=== PATIENT | male | born 1935 | race Caucasian/White ===

== ENCOUNTER 2018-02-28 08:52 | Observation (INO) | payer MEDICARE ==
--- NOTE | 2018-02-28 09:07 | ED ---
General Adult HPI - General Stated complaint: Altered mental status Time Seen by Provider: 02/28/18 08:58 Source: patient, EMS, RN notes reviewed, old records reviewed - History of Present Illness Initial comments: 83-year-old male presents by EMS after [facility]. Patient was found by staff covered in feces, unknown how long the patient had been in the bathroom. He was able to ambulate with assistance. EMS denies any blood or external signs of trauma. Patient is a poor historian. Uncertain of his baseline mental status at the time of initial evaluation. Patient complains of some mild right-sided neck pain. No chest pain or abdominal pain. No history of vomiting or diarrhea. No history of fever. - Related Data Home Medications Medication Instructions Recorded Confirmed Aspirin [Adult Low Dose Aspirin EC] 81 mg PO DAILY 02/28/18 02/28/18 Dicyclomine HCl 20 mg PO QID 02/28/18 02/28/18 fentaNYL 25MCG/HR PATCH [Duragesic 1 patch TRANSDERM Q72H 02/28/18 02/28/18 25MCG/HR] glipiZIDE XL [Glucotrol Xl] 2.5 mg PO DAILY 02/28/18 02/28/18 Allergies Allergy/AdvReac Type Severity Reaction Status Date / Time Penicillins Allergy Swelling Verified 02/28/18 12:39 Review of Systems ROS Statement: Those systems with pertinent positive or pertinent negative responses have been documented in the HPI. ROS Other: All systems not noted in ROS Statement are negative. General Exam General appearance: alert, in no apparent distress Head exam: Present: atraumatic, normocephalic Eye exam: Present: normal appearance, PERRL, EOMI ENT exam: Present: mucous membranes dry Neck exam: Present: normal inspection, tenderness (No midline tenderness, some mild right cervical paraspinal tenderness) Respiratory exam: Present: normal lung sounds bilaterally. Absent: respiratory distress, wheezes, rales Cardiovascular Exam: Present: regular rate, normal rhythm GI/Abdominal exam: Present: soft. Absent: distended, tenderness Extremities exam: Present: normal inspection, normal capillary refill. Absent: pedal edema, calf tenderness Back exam: Present: normal inspection. Absent: tenderness, paraspinal tenderness, vertebral tenderness Neurological exam: Present: alert, CN II-XII intact. Absent: oriented X3 (2), motor sensory deficit Psychiatric exam: Present: normal affect, normal mood Skin exam: Present: warm, dry, intact. Absent: cyanosis, diaphoretic Course Vital Signs 02/28/18 02/28/18 02/28/18 08:59 11:13 13:15 Pulse Rate 78 76 75 Respiratory 18 18 18 Rate Blood Pressure 184/85 168/89 150/80 O2 Sat by Pulse 96 98 98 Oximetry EKG Findings - EKG Comments: EKG Findings:: EKG, normal sinus rhythm, ventricular rate of 77, MA interval 176 , QRS duration 106, QTC 411, no ST segment elevation Medical Decision Making - Medical Decision Making 83-year-old male presenting status post fall with unknown downtime. Patient is a poor historian. CT is obtained, negative for intracranial hemorrhage, negative C-spine no fracture or subluxation. Pelvis x-ray shows a partially healed right hip fracture. Patient states this was several months ago but is not clear and no records are available for review. Chest x-ray shows clear lungs no pneumonia. White blood cell count shows mild leukocytosis of 14.1, hemoglobin 16.9, mild hyperkalemia 5.2. There is some transaminitis with elevated bili, ultrasound is obtained, this is negative for infection, gallbladder surgically removed. Case discussed with the patient's primary care physician Dr. Rae, he will be placed in observation, physical therapy and orthopedic surgery to evaluate. - Lab Data Result diagrams: 02/28/18 09:04 02/28/18 09:04 Lab Results 02/28/18 02/28/18 02/28/18 Range/Units 09:04 09:04 09:04 WBC 14.1 H (3.8-10.6) k/uL RBC 5.42 (4.30-5.90) m/uL Hgb 16.9 (13.0-17.5) gm/dL Hct 50.1 (39.0-53.0) % MCV 92.4 (80.0-100.0) fL MCH 31.2 (25.0-35.0) pg MCHC 33.8 (31.0-37.0) g/dL RDW 12.9 (11.5-15.5) % Plt Count 147 L (150-450) k/uL Neutrophils % 78 % Lymphocytes % 12 % Monocytes % 8 % Eosinophils % 1 % Basophils % 0 % Neutrophils # 11.0 H (1.3-7.7) k/uL Lymphocytes # 1.7 (1.0-4.8) k/uL Monocytes # 1.1 H (0-1.0) k/uL Eosinophils # 0.1 (0-0.7) k/uL Basophils # 0.0 (0-0.2) k/uL PT (9.0-12.0) sec INR (<1.2) APTT (22.0-30.0) sec Sodium 144 (137-145) mmol/L Potassium 5.4 H (3.5-5.1) mmol/L Chloride 107 (98-107) mmol/L Carbon Dioxide 22 (22-30) mmol/L Anion Gap 15 mmol/L BUN 21 H (9-20) mg/dL Creatinine 1.11 (0.66-1.25) mg/dL Est GFR (CKD-EPI)AfAm 71 (>60 ml/min/1.73 sqM) Est GFR (CKD-EPI)NonAf 62 (>60 ml/min/1.73 sqM) Glucose 209 H (74-99) mg/dL Calcium 10.6 H (8.4-10.2) mg/dL Total Bilirubin 2.1 H (0.2-1.3) mg/dL AST 68 H (17-59) U/L ALT 104 H (21-72) U/L Alkaline Phosphatase 98 (38-126) U/L Total Creatine Kinase 179 H (55-170) U/L CK-MB (CK-2) 1.4 (0.0-2.4) ng/mL CK-MB (CK-2) Rel Index 0.8 Troponin I 0.016 (0.000-0.034) ng/mL Total Protein 7.9 (6.3-8.2) g/dL Albumin 4.3 (3.5-5.0) g/dL Urine Color Urine Appearance (Clear) Urine pH (5.0-8.0) Ur Specific [place] (1.001-1.035) Urine Protein (Negative) Urine Glucose (UA) (Negative) Urine Ketones (Negative) Urine Blood (Negative) Urine Nitrite (Negative) Urine Bilirubin (Negative) Urine Urobilinogen (<2.0) mg/dL Ur Leukocyte Esterase (Negative) Urine RBC (0-5) /hpf Urine WBC (0-5) /hpf Ur Squamous Epith Cells (0-4) /hpf Urine Mucus (None) /hpf 02/28/18 02/28/18 Range/Units 09:11 11:05 WBC (3.8-10.6) k/uL RBC (4.30-5.90) m/uL Hgb (13.0-17.5) gm/dL Hct (39.0-53.0) % MCV (80.0-100.0) fL MCH (25.0-35.0) pg MCHC (31.0-37.0) g/dL RDW (11.5-15.5) % Plt Count (150-450) k/uL Neutrophils % % Lymphocytes % % Monocytes % % Eosinophils % % Basophils % % Neutrophils # (1.3-7.7) k/uL Lymphocytes # (1.0-4.8) k/uL Monocytes # (0-1.0) k/uL Eosinophils # (0-0.7) k/uL Basophils # (0-0.2) k/uL PT 11.6 (9.0-12.0) sec INR 1.2 H (<1.2) APTT 23.1 (22.0-30.0) sec Sodium (137-145) mmol/L Potassium (3.5-5.1) mmol/L Chloride (98-107) mmol/L Carbon Dioxide (22-30) mmol/L Anion Gap mmol/L BUN (9-20) mg/dL Creatinine (0.66-1.25) mg/dL Est GFR (CKD-EPI)AfAm (>60 ml/min/1.73 sqM) Est GFR (CKD-EPI)NonAf (>60 ml/min/1.73 sqM) Glucose (74-99) mg/dL Calcium (8.4-10.2) mg/dL Total Bilirubin (0.2-1.3) mg/dL AST (17-59) U/L ALT (21-72) U/L Alkaline Phosphatase (38-126) U/L Total Creatine Kinase (55-170) U/L CK-MB (CK-2) (0.0-2.4) ng/mL CK-MB (CK-2) Rel Index Troponin I (0.000-0.034) ng/mL Total Protein (6.3-8.2) g/dL Albumin (3.5-5.0) g/dL Urine Color Yellow Urine Appearance Clear (Clear) Urine pH 5.5 (5.0-8.0) Ur Specific [place] 1.019 (1.001-1.035) Urine Protein 1+ H (Negative) Urine Glucose (UA) 2+ H (Negative) Urine Ketones Trace H (Negative) Urine Blood Negative (Negative) Urine Nitrite Negative (Negative) Urine Bilirubin Negative (Negative) Urine Urobilinogen <2.0 (<2.0) mg/dL Ur Leukocyte Esterase Negative (Negative) Urine RBC 1 (0-5) /hpf Urine WBC 1 (0-5) /hpf Ur Squamous Epith Cells <1 (0-4) /hpf Urine Mucus Rare H (None) /hpf Disposition Clinical Impression: Fall, Hip fracture, right Disposition: ADMITTED IP TO THIS [facility] Condition: Stable Referrals: Wellington Rae MD [Primary Care Provider] - 1-2 days Decision to Admit Reason: Admit from EC Decision Date: 02/28/18 Decision Time: 13:39
[2018-02-28 09:28] LABS: Basophils % (A) 0 %; Eosinophils # (A) 0.1 k/uL (0-0.7); Eosinophils % (A) 1 %; HCT 50.1 % (39.0-53.0); HGB 16.9 gm/dL (13.0-17.5); Lymphocytes # (A) 1.7 k/uL (1.0-4.8); Lymphocytes % (A) 12 %; MCH 31.2 pg (25.0-35.0); MCHC 33.8 g/dL (31.0-37.0); MCV 92.4 fL (80.0-100.0); Monocytes # (A) 1.1 k/uL (0-1.0); Monocytes % (A) 8 %; Neutrophils % (A) 78 %; Platelet Count 147 k/uL (150-450); RBC 5.42 m/uL (4.30-5.90); RDW 12.9 % (11.5-15.5); WBC 14.1 k/uL (3.8-10.6)
[2018-02-28 09:36] LABS: Albumin 4.3 g/dL (3.5-5.0); Calcium 10.6 mg/dL (8.4-10.2); Potassium 5.4 mmol/L (3.5-5.1); Total Bilirubin 2.1 mg/dL (0.2-1.3); Total Protein 7.9 g/dL (6.3-8.2)
[2018-02-28 09:38] LABS: INR 1.2 (<1.2); Partial Thromboplastin Time 23.1 sec (22.0-30.0); Prothrombin Time 11.6 sec (9.0-12.0)
--- NOTE | 2018-02-28 09:51 | CT ---
EXAMINATION TYPE: CT brain deepthi watters DATE OF EXAM: 02/28/2018 COMPARISON: NONE HISTORY: Altered mental status CT DLP: 1644.20 mGycm Automated exposure control for dose reduction was used. TECHNIQUE: CT scan of the head and cervical spine are performed without contrast. FINDINGS: BRAIN: There are generalized changes of sulcal prominence and ventriculomegaly, compatible with atrop hic change. There is diffuse periventricular white matter lucency, compatible with chronic white jono er ischemic change. There is no acute focal lesion, mass effect or midline shift identified. I do not see evidence of intracranial blood. Visualized portions of the paranasal sinuses and mastoids are clear. The bony calvarium is intact. IMPRESSION: 1. NO ACUTE INTRACRANIAL ABNORMALITY. 2. ATROPHIC CHANGE. 3. CHRONIC WHITE MATTER ISCHEMIC CHANGE. CERVICAL SPINE: The visualized portions of the lungs are clear. Prevertebral soft tissues are normal. Vertebral body height and alignment are maintained. Atlantoaxial relationships are normal. There is disc space loss and hypertrophic spondylosis at C3-4. There is a mild retrograde listhesis o f C3 on C4 and an antegrade listhesis of C4 on C5. There is disc space loss at C5-6. There is facet a rthropathy on the right at C3-4 there is uncovertebral joint disease present at C2-3 and C3-4. There is no evidence of protrusion. No fracture is identified. IMPRESSION: 1. NO ACUTE OSSEOUS LESION. 2. DEGENERATIVE CHANGE.
--- NOTE | 2018-02-28 09:53 | XR ---
EXAMINATION TYPE: XR pelvis AP view , ONE VIEW DATE OF EXAM ORDERED: 02/28/2018 HISTORY: Trauma. COMPARISON: None. FINDINGS: There has been a dynamic hip pinning on the right. There are degenerative changes in both hips. Osseous structures about the pelvis appear normal. Previous fracture of the right hip is not co mpletely healed. There are vascular calcifications. IMPRESSION: 1. PARTIALLY HEALED FRACTURE OF THE RIGHT HIP. 2. NO ACUTE OSSEOUS LESION
--- NOTE | 2018-02-28 09:54 | XR ---
EXAMINATION TYPE: XR chest 1V portable DATE OF EXAM: 02/28/2018 HISTORY: trauma. REFERENCE: NONE. FINDINGS: There has been a midline sternotomy. The lungs are clear. Heart size is within normal limits. There is some blunting of the left CP angle which may represent a small amount of pleural fluid or pleural thickening. IMPRESSION: MILD LEFT-SIDED PLEURAL REACTION.
[2018-02-28 10:06] LABS: Creatine Kinase MB 1.4 ng/mL (0.0-2.4); Troponin I 0.016 ng/mL (0.000-0.034)
[2018-02-28 11:20] LABS: Appearance,Urine Clear (Clear); Bilirubin,Urine Negative (Negative); Blood,Urine Negative (Negative); Color,Urine Yellow; Glucose,Urine (UA) 2+ (Negative); Ketones,Urine Trace (Negative); Leukocyte Esterase,Urine Negative (Negative); Mucus,Urine Rare /hpf; Nitrite,Urine Negative (Negative); PH, Urine 5.5 (5.0-8.0); Protein,Urine 1+ (Negative); RBC,Urine 1 /hpf (0-5); Specific Gravity,Urine 1.019 (1.001-1.035); Squamous Epithelial Cell,Urine <1 /hpf (0-4); Urobilinogen,Urine <2.0 mg/dL (<2.0); WBC,Urine 1 /hpf (0-5)
--- NOTE | 2018-02-28 13:15 | US ---
EXAMINATION TYPE: US gallbladder DATE OF EXAM: 02/28/2018 COMPARISON: NONE CLINICAL HISTORY: Pain. Abdominal pain, cholecystectomy EXAM MEASUREMENTS: Liver Length: 14.4 cm Gallbladder Wall: Surgically absent CBD: 0.4 cm Right Kidney: 14.8 x 5.0 x 4.3 cm Technical limitations due to patient's body habitus and overlying bowel content Pancreas: Obscured by bowel gas Liver: heterogeneous Gallbladder: Surgically absent Evidence for sonographic Ackerman's sign: no CBD: limited evaluation Right Kidney: complex cystic area upper pole = 9.1 x 7.1 x 9.0cm Gallbladder is obscured. The liver is normal in size but is somewhat heterogenous. There is no biliary dilatation. The gallbladder is been removed. The distal common hepatic duct measures 4 mm. There is a complex upper pole cyst in the right kidney measuring 9.1 x 7.1 x 9 cm. Intrahepatic IVC is unremarkable. IMPRESSION: 1. HETEROGENOUS ECHOTEXTURE OF THE LIVER MAY REFLECT CHRONIC MEDICAL DISEASE. 2. LARGE, COMPLEX RIGHT UPPER POLE RENAL CYST.
[2018-02-28] MEDS ORDERED: NALOXONE 0.4 MG/ML 1 ML VIAL IV PRN (13:35)
[2018-02-28 15:58] VITALS: BMI 29.5
[2018-02-28] MEDS: SODIUM CHLORIDE 0.9% 1,000 ML IV SCH (16:03)
[2018-02-28 17:18] LABS: Glucose,Whole Blood 199 mg/dL (75-99)
[2018-02-28] MEDS: INSULIN ASPART 100 UNIT/ML 1 ML 10 ML VIAL SQ SCH ×2 (18:03→21:31)
[2018-02-28 21:09] LABS: Glucose,Whole Blood 211 mg/dL (75-99)
[2018-02-28] MEDS: DICYCLOMINE 20 MG TAB PO SCH ×3 (21:31→21:32)
[2018-03-01 07:23] LABS: Glucose,Whole Blood 123 mg/dL (75-99)
[2018-03-01 07:57] LABS: Basophils % (A) 0 %; Eosinophils # (A) 0.3 k/uL (0-0.7); Eosinophils % (A) 4 %; HGB 15.9 gm/dL (13.0-17.5); Lymphocytes # (A) 3.1 k/uL (1.0-4.8); Lymphocytes % (A) 31 %; MCH 30.6 pg (25.0-35.0); MCHC 32.4 g/dL (31.0-37.0); MCV 94.4 fL (80.0-100.0); Monocytes # (A) 0.9 k/uL (0-1.0); Monocytes % (A) 9 %; Neutrophils # (A) 5.4 k/uL (1.3-7.7); Neutrophils % (A) 55 %; Platelet Count 121 k/uL (150-450); RBC 5.19 m/uL (4.30-5.90); RDW 12.9 % (11.5-15.5); WBC 9.9 k/uL (3.8-10.6)
[2018-03-01 08:11] LABS: Calcium 9.9 mg/dL (8.4-10.2); Potassium 4.2 mmol/L (3.5-5.1)
[2018-03-01] MEDS: INSULIN ASPART 100 UNIT/ML 1 ML 10 ML VIAL SQ SCH ×4 (08:20→21:36)
[2018-03-01] MEDS: DICYCLOMINE 20 MG TAB PO SCH ×4 (08:22→21:36)
[2018-03-01] MEDS: ASPIRIN 81 MG PO SCH (08:22)
--- NOTE | 2018-03-01 10:46 | P.CNOR ---
History of Present Illness - HPI Consult date: 03/01/18 Consult reason: other (Remote right hip fracture status post surgical fixation at outside institution. Patient found on the floor) History of present illness: Patient is seen and examined today at bedside. He is a 83-year-old gentleman who was found on the floor of his residence at [facility] unable to get up. He is somewhat poor historian but is able answer some questions. He is able to follow some commands. He says that he had sustained an injury 2 or 3 months ago and underwent surgical intervention for his right hip at [facility] 2-3 months ago. He says he had gone to rehab and is now residing at [facility] and has been doing some therapy. He says he is able to weight on his right leg but he feels as though his knee gives out from time to time. He is not complaining of any new pain in his hip. He is not complaining of any new pains at his neck back or other extremities since his new fall. He denies any chest pain shortness breath. Review of Systems As per HPI. Apparently underwent right intertrochanteric femur fracture with operative fixation approximately 2-3 months ago at [facility]. He denies any new injuries or trauma. He denies any new weakness. Denies any fevers chills. Denies any neck pain or back pain. Past Medical History Past Medical History: Diabetes Mellitus, Musculoskeletal Disorder (Right hip intertrochanteric femur fracture with surgical fixation done at [place], approximately 2-3 months ago) History of Any Multi-Drug Resistant Organisms: None Reported Past Surgical History: Cholecystectomy, Coronary Bypass/CABG Past Anesthesia/Blood Transfusion Reactions: No Reported Reaction Past Psychological History: No Psychological Hx Reported Smoking Status: Former smoker Past Alcohol Use History: None Reported Past Drug Use History: None Reported - Past Family History Brother(s) Family Medical History: COPD Medications and Allergies Home Medications Medication Instructions Recorded Confirmed Type Aspirin [Adult Low Dose Aspirin EC] 81 mg PO DAILY 02/28/18 02/28/18 History Dicyclomine HCl 20 mg PO QID 02/28/18 02/28/18 History fentaNYL 25MCG/HR PATCH [Duragesic 1 patch TRANSDERM Q72H 02/28/18 02/28/18 History 25MCG/HR] glipiZIDE XL [Glucotrol Xl] 2.5 mg PO DAILY 02/28/18 02/28/18 History Allergies Allergy/AdvReac Type Severity Reaction Status Date / Time Penicillins Allergy Swelling Verified 02/28/18 12:39 Physical Examination Osteopathic Statement: *. No significant issues noted on an osteopathic structural exam other than those noted in the History and Physical/Consult. - Hip right Gait: other (At his right hip there are well-healed incisions. There is no evidence of any erythema or infection. He is nontender to palpation over the area. He is able to lift his leg up off the bed well. He has no pain with internal and external rotation is hips. He has good active range of motion of his bilateral hips. He has sustained dorsal flexion plantarflexion and extensor hallucis longus his bilateral ankles. His strength intact in his bilateral knees. There is no tenderness to palpation over his knees. There is no crepitus.) Results - Labs Labs: Abnormal Lab Results - Last 24 Hours (Table) 02/28/18 02/28/18 02/28/18 Range/Units 11:05 17:05 21:02 Plt Count (150-450) k/uL Chloride (98-107) mmol/L Glucose (74-99) mg/dL POC Glucose (mg/dL) 199 H 211 H (75-99) mg/dL Urine Protein 1+ H (Negative) Urine Glucose (UA) 2+ H (Negative) Urine Ketones Trace H (Negative) Urine Mucus Rare H (None) /hpf 03/01/18 03/01/18 03/01/18 Range/Units 06:56 07:40 07:40 Plt Count 121 L (150-450) k/uL Chloride 108 H (98-107) mmol/L Glucose 137 H (74-99) mg/dL POC Glucose (mg/dL) 123 H (75-99) mg/dL Urine Protein (Negative) Urine Glucose (UA) (Negative) Urine Ketones (Negative) Urine Mucus (None) /hpf H & H 02/28/18 03/01/18 Range/Units 09:04 07:40 Hgb 16.9 15.9 (13.0-17.5) gm/dL Hct 50.1 49.0 (39.0-53.0) % Coagulation 02/28/18 Range/Units 09:11 INR 1.2 H (<1.2) Result Diagrams: 03/01/18 07:40 03/01/18 07:40 - Diagnostic results Wrist/Hand CT: report reviewed Hip x-ray: report reviewed, image reviewed (Pelvic x-ray shows a right intertrochanteric intramedullary hip screw in place. Appears to be inadequately healed intertrochanteric hip fracture which appears stable. There is no new fracture.) Assessment and Plan Assessment: Remote right hip intertrochanteric femur fracture status post open reduction internal fixation with intramedullary hip screw done at [facility] approximately to 3 months ago Status post fall at home without evidence of new fracture Stable fixation at the right hip Plan: -Remote right hip intertrochanteric femur fracture status post open reduction internal fixation with intramedullary hip screw done at [facility] approximately to 3 months ago -Status post fall at home without evidence of new fracture -Stable fixation at the right hip The patient sustained a fall while at his residence and was unable to get up. He does not appear to have any new injury or instability at this extremities. He has a subacute surgical status with an intramedullary hip screw at his right hip for an intertrochanteric hip fracture. This was done 2-3 months ago at [facility] of the patient is unsure of the specific date it appears to be adequately healed and his motion is improved significantly. He is not having pain in her hip at this point and I think it is okay for him to start to mobilize and weight-bear as tolerated with physical therapy. He does not appear to have any new fracture and it is okay from an orthopedic surgery standpoint to be discharged and to follow up with his own orthopedic surgery physician as scheduled. We do not have any further plan for orthopedic surgical intervention at this point. We will go ahead and order physical therapy for mobilization and ambulation weightbearing as tolerated.
[2018-03-01 11:51] LABS: Glucose,Whole Blood 181 mg/dL (75-99)
--- NOTE | 2018-03-01 13:28 | HP ---
HISTORY AND PHYSICAL DATE OF SERVICE: 02/28/2018. CHIEF COMPLAINT: 83-year-old white male with a fall at home. HISTORY OF PRESENT ILLNESS: 83-year-old white male came to the emergency room after being found covered feces in the bathroom. He usually does not ambulate. He usually just likes to lay in bed. He is a poor historian. He is complaining of some right-sided hip pain at this time. No vomiting, diarrhea. No fevers. HOME MEDICINES: 20 mg q.i.d., low-dose aspirin 81 daily, fentanyl 25 mcg patch, and Glucotrol XL 22.5 daily. ALLERGIES: PENICILLIN. REVIEW OF SYSTEMS: Fourteen point review of systems negative except for as mentioned in HPI. PHYSICAL EXAM: Pulse is in the 70s, respiratory 16 to 18, blood pressure 150 to 180s over 80 to 85, pulse ox is 98-96. HEAD: Normocephalic, atraumatic. OPHTHALMOLOGIC: Pupils equal, round, reactive to light and accommodation. NEUROLOGIC: Alert, oriented x3. PSYCH: Fair mood and affect. CARDIOVASCULAR: Regular rate and rhythm. GI: Soft, nontender. HEMATOLOGIC: Negative Homans. PSYCH: Fair mood and affect. SKIN: Warm, dry, and intact. MUSCULOSKELETAL: He has limited motion of his right leg. He has tenderness to palpation in his right hip. EKG shows sinus rhythm. White count 14. Sodium 154, potassium 5.4. ASSESSMENT: Fall with right hip fracture, possible dehydration, possible dementia. Please see further orders. MMODL / IJN: [id number] /
--- NOTE | 2018-03-01 14:19 | US ---
EXAMINATION TYPE: US abdomen comp/pelvis limited DATE OF EXAM: 03/01/2018 COMPARISON: US 02/28/2018 CLINICAL HISTORY: elevated lft. Renal cyst. Patient ate breakfast at 8AM. Difficult and limited exam due to overlying bowel gas EXAM MEASUREMENTS: Liver Length: 13.0 cm Gallbladder Wall: Surgically absent CBD: 0.4 cm Spleen: 10.1 cm Right Kidney: 11.0 x 5.8 x 5.0 cm Left Kidney: 10.4 x 4.4 x 4.9 cm Pancreas: Obscured by bowel gas Liver: Diffusely heterogeneous Gallbladder: Surgically absent CBD: wnl as visualized, distal portion obscured by bowel gas Spleen: wnl Right Kidney: Cystic area visualized measuring 9.8 x 7.3 x 9.0 cm Left Kidney: Cystic area visualized measuring 5.6 x 4.4 x 5.3 cm Upper IVC: wnl Abd Aorta: Limited evaluation due to overlying bowel gas, visualized portions show no aneurysm Bladder: wnl Bilateral Jets Seen No, right jet not visualized The pancreas is obscured. The liver is normal size but diffusely heterogenous. The gallbladder has been removed the distal common hepatic duct measures 4 cm. The spleen is normal in size. Bilateral renal cysts are again identified. The bladder is unremarkable. Only the left ureteral jet was visualized. Visualized portions of the aorta and IVC are unremarkable. IMPRESSION: 1. DIFFUSELY HETEROGENOUS LIVER PARENCHYMA. A REFLECT CHRONIC HEPATIC DISEASE. 2. BILATERAL RENAL CYSTS.
[2018-03-01] MEDS: SODIUM CHLORIDE 0.9% 1,000 ML IV SCH (16:01)
[2018-03-01 17:24] LABS: Glucose,Whole Blood 133 mg/dL (75-99)
--- NOTE | 2018-03-01 17:25 | PN ---
PROGRESS NOTE SUBJECTIVE: 83-year-old white male with a fall with a remote hip fracture in his right hip. He has been cleared by Orthopedic surgery. His vital signs appear to be stable. His labs appear to be stable. CT scans of the head and neck reviewed. Pelvic x-rays reviewed. The patient will be needed possibly go to back to his home tomorrow. Increase PT/OT and increase the diet. MMODL / IJN: [id number] /
[2018-03-01 19:34] LABS: Hemoglobin A1C 7.4 % (4.0-6.0)
[2018-03-01 21:18] LABS: Glucose,Whole Blood 144 mg/dL (75-99)
[2018-03-02 07:27] LABS: Glucose,Whole Blood 127 mg/dL (75-99)
[2018-03-02] MEDS: INSULIN ASPART 100 UNIT/ML 1 ML 10 ML VIAL SQ SCH ×4 (08:26→21:46)
[2018-03-02 08:44] LABS: Basophils % (A) 1 %; Eosinophils # (A) 0.4 k/uL (0-0.7); Eosinophils % (A) 5 %; HGB 16.6 gm/dL (13.0-17.5); Lymphocytes # (A) 2.5 k/uL (1.0-4.8); Lymphocytes % (A) 32 %; MCH 30.3 pg (25.0-35.0); MCHC 31.9 g/dL (31.0-37.0); MCV 95.2 fL (80.0-100.0); Mean Platelet Volume 9.1; Monocytes # (A) 0.8 k/uL (0-1.0); Monocytes % (A) 10 %; Neutrophils % (A) 51 %; Platelet Count 134 k/uL (150-450); RBC 5.46 m/uL (4.30-5.90); RDW 12.9 % (11.5-15.5); WBC 7.9 k/uL (3.8-10.6)
[2018-03-02 09:03] LABS: Calcium 10.3 mg/dL (8.4-10.2); Potassium 4.4 mmol/L (3.5-5.1); Total Bilirubin 1.8 mg/dL (0.2-1.3); Total Protein 7.4 g/dL (6.3-8.2)
[2018-03-02] MEDS: ASPIRIN 81 MG PO SCH (09:45)
[2018-03-02] MEDS: DICYCLOMINE 20 MG TAB PO SCH ×4 (09:45→21:46)
[2018-03-02 11:53] LABS: Glucose,Whole Blood 216 mg/dL (75-99)
[2018-03-02] MEDS ORDERED: HYDROCORTISONE 1% CREAM 30 GM TUBE TOPICAL PRN (12:48)
[2018-03-02] MEDS: SODIUM CHLORIDE 0.9% 1,000 ML IV SCH (12:54)
[2018-03-02 17:04] LABS: Glucose,Whole Blood 225 mg/dL (75-99)
--- NOTE | 2018-03-02 19:36 | CT ---
EXAMINATION TYPE: CT brain wo con DATE OF EXAM: 03/02/2018 COMPARISON: 02/28/2018 HISTORY: Altered mental status. CT DLP: 1805 mGycm Automated exposure control for dose reduction was used. FINDINGS: There is cerebral cortical atrophy. There is no mass effect nor midline shift. There is no sign of in tracranial hemorrhage. IMPRESSION: CEREBRAL ATROPHY. NO ACUTE INTRACRANIAL ABNORMALITY. NO CHANGE.
[2018-03-02 20:35] LABS: Hepatitis A Antibody IgM Non-Reactive (Non-Reactive); Hepatitis B Core IgM Non-Reactive (Non-Reactive)
[2018-03-02 21:13] LABS: Glucose,Whole Blood 150 mg/dL (75-99)
--- NOTE | 2018-03-02 22:42 | PN ---
PROGRESS NOTE SUBJECTIVE: This is an 83-year-old white male who had a fall remote hip fracture. He became more confused. He had a CT scan of the brain. EEG and neurologic consult are pending. Elevated liver enzymes. Waiting for GI consult. Ortho consult reviewing for the right hip fracture. Continue current treatments. He does not want to go to rehab center. He will go home to the [facility]. He will get outpatient PT OT. CARDIOVASCULAR: S1, S2. Lungs are clear. GI: Soft. NEURO: Apparently he has some staring spells without seizure. Rule out intracranial bleed. Neurologic consult. Possible metabolic encephalopathy. Elevated liver enzymes of unclear etiology. Right hip fracture. Continue with orthopedic treatment. MMODL / IJN: [id number] /
[2018-03-03 07:51] LABS: Glucose,Whole Blood 141 mg/dL (75-99)
[2018-03-03] MEDS: DICYCLOMINE 20 MG TAB PO SCH ×4 (08:07→20:50)
[2018-03-03] MEDS: ASPIRIN 81 MG PO SCH (08:07)
[2018-03-03] MEDS: INSULIN ASPART 100 UNIT/ML 1 ML 10 ML VIAL SQ SCH ×4 (08:11→20:56)
--- NOTE | 2018-03-03 11:58 | P.CONS ---
History of Present Illness - Reason for Consult Consult date: 03/03/18 Elevated liver enzymes Requesting physician: Wellington Rae - History of Present Illness 83-year-old male past medical history diabetes mellitus, cholecystectomy, CAD/ CABG admitted with dehydration confusion resident at [facility] recent hip surgery found in the bathroom of the [facility] covered in feces unsure how long patient had been in the bathroom. Patient is confused unable to provide history. History is obtained from medical records ER notes and nursing staff. Apparently there is no history of documented alcoholism or known liver disease. Consult was requested for elevated liver enzymes. Total bilirubin 2.1. AST 60. ALT 104. Alkaline phosphatase 98. LFTs are improving yesterday total bili 1.8. AST 60. ALT 81. Alkaline phosphates 82. BUN 21 creatinine 1.1. No reports of abdominal pain. Abdominal ultrasound CBD 0.4 cm. Liver length 13 cm. Gallbladder absent. Liver is normal but diffusely heterogeneous. Chronic hepatic disease. Hepatitis screen nonreactive. On review of medical records no previous liver enzymes for comparison. Review of Systems Obtained from medical records ER notes and nursing staff Constitutional: Denies fever, chills, sweats, weight gain, or loss. HEENT: Negative for migraines, blurred vision or loss, earaches, drainage, tinnitus, oral mucosal lesions, dysphagia, or odynophagia. Cardiac: CAD. CABG. Negative for chest pain, arrhythmias, or palpitation. Respiratory: Negative for shortness of breath, hemoptysis, cough, or sputum production. Gastrointestinal: See HPI for pertinent findings. Genitourinary: Negative for hematuria, urgency, frequency, polyuria, dysuria, or penile discharge. Musculoskeletal: Negative for muscle aches, swelling, arthritis, and arthralgias. Neurologic: Negative for stroke or TIA. Endocrine: Diabetes mellitus. Negative for thyroid problems. Skin: Negative for rash or itching. Psychiatric: Negative history for depression and anxiety ROS unobtainable: due to mental status Past Medical History Past Medical History: Diabetes Mellitus, Musculoskeletal Disorder (Right hip intertrochanteric femur fracture with surgical fixation done at [place], approximately 2-3 months ago) History of Any Multi-Drug Resistant Organisms: None Reported Past Surgical History: Cholecystectomy, Coronary Bypass/CABG Past Anesthesia/Blood Transfusion Reactions: No Reported Reaction Past Psychological History: No Psychological Hx Reported Smoking Status: Former smoker Past Alcohol Use History: None Reported Past Drug Use History: None Reported - Past Family History Brother(s) Family Medical History: COPD Medications and Allergies Home Medications Medication Instructions Recorded Confirmed Type Aspirin [Adult Low Dose Aspirin EC] 81 mg PO DAILY 02/28/18 02/28/18 History Dicyclomine HCl 20 mg PO QID 02/28/18 02/28/18 History fentaNYL 25MCG/HR PATCH [Duragesic 1 patch TRANSDERM Q72H 02/28/18 02/28/18 History 25MCG/HR] glipiZIDE XL [Glucotrol Xl] 2.5 mg PO DAILY 02/28/18 02/28/18 History Allergies Allergy/AdvReac Type Severity Reaction Status Date / Time Penicillins Allergy Swelling Verified 02/28/18 12:39 Physical Exam Vitals: Vital Signs Temp Pulse Resp BP BP Pulse Ox 03/03/18 07:43 95 03/03/18 07:00 98.4 F 59 L 18 131/66 94 L 03/02/18 23:00 98.7 F 61 18 171/71 96 03/02/18 17:55 98.2 F 55 L 16 148/65 96 03/02/18 15:00 98.4 F 58 L 16 156/81 94 L Intake and Output 03/02/18 03/03/18 03/03/18 22:59 06:59 14:59 Intake Total 0 Output Total 3000 Balance 0 -3000 Intake: Intake, IV Titration 0 Amount Sodium Chloride 0.9% 1, 0 000 ml @ 20 mls/hr IV . Q24H [facility] Rx#:[id number] Output: Urine 2000 Straight 1000 Post Void Residual 1000 Other: Voiding Method Incontinent # Voids 1 0 General appearance: The patient is alert, confused in no acute distress answers simple questions. HET: Head is normocephalic and atraumatic. Pupils are equal and reactive. Oropharynx is clear without lesions. Neck: Supple without lymphadenopathy. Trachea midline. Heart: S1 S2. Regular rate and rhythm. Lungs: No crackles or wheezes are heard. Abdomen: Soft, nontender, nondistended with bowel sounds. No peritoneal signs. No palpable organomegaly or masses. Extremities: Normal skin color and turgor. No cyanosis, rash, ulceration, clubbing, or edema. Radial and pedal pulses are 2/4 bilaterally. Neurological: No focal deficits. Strength and sensation are grossly intact. Results CBC & Chem 7: 03/04/18 09:04 03/04/18 09:04 Labs: Abnormal Lab Results - Last 24 Hours (Table) 03/02/18 03/02/18 03/02/18 Range/Units 11:43 16:49 21:09 POC Glucose (mg/dL) 216 H 225 H 150 H (75-99) mg/dL 03/03/18 Range/Units 07:10 POC Glucose (mg/dL) 141 H (75-99) mg/dL US - abdomen: report reviewed (Dr. Ward) Assessment and Plan (1) Elevated liver enzymes Narrative/Plan: 83-year-old male admitted with confusion fall dehydration found in the bathroom covered in feces for undocumented period of time with elevated liver enzymes with slow clinical improvement. Etiology of elevated liver enzymes could be underlying hepatic steatosis fatty liver disease steatohepatitis, underlying alcohol component cannot be excluded, other differentials to consider is mild shock liver patient was found status post fall and bathroom floor for period of time hypotensive blood changes cannot be entirely excluded. Current Visit: Yes Status: Acute Code(s): R74.8 - ABNORMAL LEVELS OF OTHER SERUM ENZYMES SNOMED Code(s): 733862947 Plan: 1. Considering patient's LFTs are slowly improving and he is without abdominal pain no further workup at this time. Continue with supportive measures. We'll follow with you. [facility] in a.m. Thank you for this kind referral and the opportunity to participate in the care of your patient. This consultation was discussed with Dr. Ward. The impression and plan of care have been directed as dictated.
[2018-03-03 12:11] LABS: Glucose,Whole Blood 128 mg/dL (75-99)
[2018-03-03] MEDS: SODIUM CHLORIDE 0.9% 1,000 ML IV SCH (13:34)
--- NOTE | 2018-03-03 19:28 | EEG ---
ELECTROENCEPHALOGRAM REPORT DATE OF SERVICE: 03/03/2018 REASON FOR TESTING: Altered mental status. DESCRIPTION OF THE PROCEDURE: This EEG was performed using a 21-channel digital electroencephalograph, following international 10-20 system. DESCRIPTION OF THE RECORDING: From the beginning of the tracing, and with the patient's eyes closed, the background rhythm was mostly consisting of 8 Hz alpha frequency in the posterior occipital leads. No obvious asymmetry is seen. Occasional movement artifacts are noticed. Photic stimulation was performed with no driving response seen. No pathological waves were elicited. Hyperventilation was not performed. The patient does reach a drowsy state during the testing but does not reach stage II of sleep Hyperventilation was not performed. No epileptiform discharges were seen. His EKG lead showed a regular rate and rhythm. INTERPRETATION: This awake EEG can be considered within normal limits. There was no asymmetry seen. No epileptiform discharges were noticed. The absence of epileptiform discharges does not rule out the diagnosis of epilepsy; therefore clinical correlation is recommended. MMJANY / ZAINABN: [id number] /
[2018-03-03 20:56] LABS: Glucose,Whole Blood 201 mg/dL (75-99)
--- NOTE | 2018-03-03 23:07 | PN ---
PROGRESS NOTE SUBJECTIVE: This is a white male with fall. He has had some confusion and disorientation at times. He is refusing a Wayne catheter. He is refusing it for urinary retention. He is refusing IVs. He pulled out his IV and wants to go home. EEG showed no seizures. CARDIOVASCULAR: S1, S2. LUNGS: Clear. GI: Soft. HEMATOLOGY: Negative Homans. ASSESSMENT: 1. Frequent falls. 2. Remote hip fracture. 3. Possible dementia with some delirium. We will send him home tomorrow. MMODL / IJN: [id number] /
[2018-03-04 00:11] VITALS: RESP 12
[2018-03-04 06:27] VITALS: BP 158/71; PULSE 61; TEMP 97.9
[2018-03-04 07:02] LABS: Glucose,Whole Blood 126 mg/dL (75-99)
[2018-03-04] MEDS: INSULIN ASPART 100 UNIT/ML 1 ML 10 ML VIAL SQ SCH ×2 (07:03→12:34)
[2018-03-04] MEDS: DICYCLOMINE 20 MG TAB PO SCH ×2 (08:03→12:35)
[2018-03-04] MEDS: ASPIRIN 81 MG PO SCH (08:03)
--- NOTE | 2018-03-04 08:59 | CONS ---
CONSULTATION DATE OF CONSULTATION: 03/03/2018 CHIEF COMPLAINT: Altered mental status. HISTORY OF PRESENT ILLNESS: The patient is an 83-year-old, male, who is being evaluated today on 03/03/18 by the neurology service per the request of Dr. Wellington Rae for altered mental status. The patient was brought into [facility] Emergency Room after he was found on the floor of his bathroom covered in feces. The patient is a very poor historian and does not recall why he is in the hospital. According to the admission note, there is a possible history of dementia. A CT scan of the brain was done, which showed no acute intracranial abnormalities. There was evidence of generalized atrophy and small-vessel ischemic changes. His CBC showed mild thrombocytopenia at 134,000 and his comprehensive metabolic profile showed hepatic insufficiency with an AST of 60 and an ALT of 81. A hepatitis panel was done which was negative. An x-ray of the pelvis was done which showed no acute fractures. There was evidence of an old fracture which was surgically repaired several months ago according to the chart. Orthopedic Surgery was consulted. From a neurology standpoint, the patient was admitted for further workup and management and at the time of my evaluation, he is resting comfortably in bed. Although he is awake and oriented, he is somewhat odd with a flat affect. When asked where does he live, he [place]". When asked, what his name was he answered., "Do you mean the name they gave me when I arrived to this world?". It is unclear if the patient has alcohol disorder history, but his liver enzymes are slightly elevated and he does have thrombocytopenia. The patient states that he has not had alcohol recently but he is unsure when he use to drink alcohol. PAST MEDICAL HISTORY: Arthritis, diabetes. SOCIAL HISTORY: The patient denies any current tobacco, alcohol or drug use, but he is unsure if he has used them in the past. FAMILY HISTORY: Noncontributory. HOME MEDICATIONS: Reviewed in the chart. ALLERGIES: PENICILLIN. REVIEW OF SYSTEM: As mentioned above and otherwise negative. PHYSICAL EXAM: Vital signs show a temperature of 97.5, pulse 58, respiration 18, blood pressure 132/76. GENERAL APPEARANCE: The patient is a well-developed, elderly male who appears to be in no acute distress. HEENT: Normocephalic, atraumatic, no facial asymmetry is seen. Neck is supple with no masses felt. CARDIOVASCULAR: Regular rate and rhythm. ABDOMEN: Obese, nontender, nondistended. Extremities showed no edema or clubbing. NEUROLOGICAL EXAM: The patient is awake and oriented x3, but it does take him a long time to present answers. He does follow all commands appropriately. Speech and language testing was normal. No lateralizing weakness is seen. Sensory exam was normal to light touch in all 4 extremities. No facial asymmetry is seen on cranial nerve testing. IMPRESSION: 1. Altered mental status. 2. 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 3. Rule out dementia. 4. Hepatic insufficiency. 5. Thrombocytopenia. 6. Questionable history of alcohol abuse. 7. Small vessel ischemic disease. RECOMMENDATION: The patient was found on his bathroom floor as mentioned above. The patient is a very poor historian and the exact cause is unknown at this time. I did review his EEG, which showed no epileptiform discharges. His CT scan of the brain showed no acute findings. The patient appears to be at his baseline, but there is concern for dementia versus encephalopathy. As mentioned above, the patient's alcohol history is unclear. I will order a vitamin B12 level and TSH level. I will also order a serum ammonia level given his hepatic insufficiency. A repeat comprehensive metabolic profile is scheduled for the morning. Continue monitoring his liver status. Continue neuro checks. I will continue to follow with you. Further recommendations to follow. Thank you, Dr. Rae, for allowing me to participate in the care of your patient. If you have any questions, please feel free to contact me. MMDARBYL / IJN: [id number] /
[2018-03-04 09:23] LABS: Basophils # (A) 0.1 k/uL (0-0.2); Basophils % (A) 1 %; Eosinophils # (A) 0.4 k/uL (0-0.7); Eosinophils % (A) 5 %; HCT 48.2 % (39.0-53.0); Lymphocytes # (A) 2.2 k/uL (1.0-4.8); Lymphocytes % (A) 29 %; MCH 31.1 pg (25.0-35.0); MCHC 33.1 g/dL (31.0-37.0); MCV 93.8 fL (80.0-100.0); Mean Platelet Volume 8.7; Monocytes # (A) 0.7 k/uL (0-1.0); Monocytes % (A) 9 %; Neutrophils # (A) 4.1 k/uL (1.3-7.7); Neutrophils % (A) 53 %; Platelet Count 128 k/uL (150-450); RBC 5.14 m/uL (4.30-5.90); RDW 12.6 % (11.5-15.5); WBC 7.6 k/uL (3.8-10.6)
[2018-03-04 09:43] LABS: Albumin 3.8 g/dL (3.5-5.0); Calcium 10.1 mg/dL (8.4-10.2); Potassium 3.9 mmol/L (3.5-5.1); Total Bilirubin 1.8 mg/dL (0.2-1.3); Total Protein 7.2 g/dL (6.3-8.2)
--- NOTE | 2018-03-04 10:22 | P.GSCN ---
History of Present Illness Consult date: 03/04/18 Reason for Consult: Retention History of present illness: The patient is an 83-year-old gentleman who was brought to the hospital from the [facility] [place] because of confusion. He was found in the bathroom confused. Apparently had a hip fracture couple months ago and has been in the [facility] [place] since. He has had incontinence. He has been bladder scanned for large postvoid residuals and for this reason we are asked see the patient. The patient is interviewed at the bedside and is still confused. He can provide no significant history. According to the nursing staff he has been scan for large volumes of urine for and after he voids. The postvoid residuals have been around 300 mL. He is not on any medication for voiding dysfunction. The patient has refused a Wayne catheter. Review of Systems ROS unobtainable: due to mental status Past Medical History Past Medical History: Diabetes Mellitus, Musculoskeletal Disorder (Right hip intertrochanteric femur fracture with surgical fixation done at [place], approximately 2-3 months ago) History of Any Multi-Drug Resistant Organisms: None Reported Past Surgical History: Cholecystectomy, Coronary Bypass/CABG Past Anesthesia/Blood Transfusion Reactions: No Reported Reaction Past Psychological History: No Psychological Hx Reported Smoking Status: Former smoker Past Alcohol Use History: None Reported Past Drug Use History: None Reported - Past Family History Brother(s) Family Medical History: COPD Medications and Allergies Home Medications Medication Instructions Recorded Confirmed Type Aspirin [Adult Low Dose Aspirin EC] 81 mg PO DAILY 02/28/18 02/28/18 History Dicyclomine HCl 20 mg PO QID 02/28/18 02/28/18 History fentaNYL 25MCG/HR PATCH [Duragesic 1 patch TRANSDERM Q72H 02/28/18 02/28/18 History 25MCG/HR] glipiZIDE XL [Glucotrol Xl] 2.5 mg PO DAILY 02/28/18 02/28/18 History Allergies Allergy/AdvReac Type Severity Reaction Status Date / Time Penicillins Allergy Swelling Verified 02/28/18 12:39 Surgical - Exam Vital Signs Pulse Resp BP Pulse Ox 78 18 184/85 96 02/28/18 08:59 02/28/18 08:59 02/28/18 08:59 02/28/18 08:59 - General Confused well developed, well nourished, other (Confused) - Eyes PERRL - ENT decreased hearing - Neck trachea midline - Respiratory normal expansion, normal respiratory effort - Abdomen Abdomen: soft, non tender - Genitourinary The patient declines rectal exam normal penis with no external lesions, testicles present - Neurologic disoriented, confused - Musculoskeletal normal posture Results - Labs 03/04/18 09:04 03/04/18 09:04 Abnormal Lab Results - Last 24 Hours (Table) 03/03/18 03/03/18 03/04/18 Range/Units 12:09 20:54 07:00 Plt Count (150-450) k/uL Glucose (74-99) mg/dL POC Glucose (mg/dL) 128 H 201 H 126 H (75-99) mg/dL Total Bilirubin (0.2-1.3) mg/dL AST (17-59) U/L ALT (21-72) U/L 03/04/18 03/04/18 Range/Units 09:04 09:04 Plt Count 128 L (150-450) k/uL Glucose 241 H (74-99) mg/dL POC Glucose (mg/dL) (75-99) mg/dL Total Bilirubin 1.8 H (0.2-1.3) mg/dL AST 62 H (17-59) U/L ALT 76 H (21-72) U/L Diabetes panel 03/04/18 Range/Units 09:04 Sodium 144 (137-145) mmol/L Potassium 3.9 (3.5-5.1) mmol/L Chloride 102 (98-107) mmol/L Carbon Dioxide 29 (22-30) mmol/L BUN 18 (9-20) mg/dL Creatinine 1.04 (0.66-1.25) mg/dL Glucose 241 H (74-99) mg/dL Calcium 10.1 (8.4-10.2) mg/dL AST 62 H (17-59) U/L ALT 76 H (21-72) U/L Alkaline Phosphatase 76 (38-126) U/L Total Protein 7.2 (6.3-8.2) g/dL Albumin 3.8 (3.5-5.0) g/dL Thyroid panel 03/03/18 Range/Units 20:26 TSH 4.190 (0.465-4.680) mIU/L Calcium panel 03/04/18 Range/Units 09:04 Calcium 10.1 (8.4-10.2) mg/dL Albumin 3.8 (3.5-5.0) g/dL Pituitary panel 03/03/18 03/04/18 Range/Units 20:26 09:04 Sodium 144 (137-145) mmol/L Potassium 3.9 (3.5-5.1) mmol/L Chloride 102 (98-107) mmol/L Carbon Dioxide 29 (22-30) mmol/L BUN 18 (9-20) mg/dL Creatinine 1.04 (0.66-1.25) mg/dL Glucose 241 H (74-99) mg/dL Calcium 10.1 (8.4-10.2) mg/dL TSH 4.190 (0.465-4.680) mIU/L Adrenal panel 03/04/18 Range/Units 09:04 Sodium 144 (137-145) mmol/L Potassium 3.9 (3.5-5.1) mmol/L Chloride 102 (98-107) mmol/L Carbon Dioxide 29 (22-30) mmol/L BUN 18 (9-20) mg/dL Creatinine 1.04 (0.66-1.25) mg/dL Glucose 241 H (74-99) mg/dL Calcium 10.1 (8.4-10.2) mg/dL Total Bilirubin 1.8 H (0.2-1.3) mg/dL AST 62 H (17-59) U/L ALT 76 H (21-72) U/L Alkaline Phosphatase 76 (38-126) U/L Total Protein 7.2 (6.3-8.2) g/dL Albumin 3.8 (3.5-5.0) g/dL Assessment and Plan Assessment: Impression: Incontinence, incomplete bladder emptying, diabetes, confusion,? Alzheimer's Recommendation: If we place a catheter most likely he will pull it out with the balloon insufflated and I do not recommend that. He would be a candidate for tamsulosin 0.4 mg daily to see if that might improve his bladder emptying. If after he returns to the medical facility and his primary doctor wants me see him as an outpatient I would be glad to do so.
--- NOTE | 2018-03-04 11:34 | P.PN ---
Subjective Progress Note Date: 03/04/18 Principal diagnosis: Elevated liver enzymes Confused. Liver enzymes unchanged from yesterday total bilirubin 1.8. AST 62. ALT 76. Alkaline phosphate 76. Possible discharge to ECF today. Afebrile. Objective - Vital Signs Vital signs: Vital Signs Temp 97.9 F 03/04/18 06:27 Pulse 61 03/04/18 06:27 Resp 12 03/04/18 06:27 BP 158/71 03/04/18 06:27 Pulse Ox 95 03/04/18 06:27 Intake & Output 03/03/18 03/04/18 03/04/18 18:59 06:59 18:59 Output Total 3000 450 Balance -3000 -450 Output: Urine 2000 450 Straight 1000 Post Void Residual 1000 Other: Voiding Method Incontinent Incontinent # Voids 0 1 2 - Exam General appearance: The patient is alert, in no acute distress confused answers simple questions appropriately. HET: Head is normocephalic and atraumatic. Pupils are equal and reactive. Oropharynx is clear without lesions. Neck: Supple without lymphadenopathy. Trachea midline. Heart: S1 S2. Regular rate and rhythm. Lungs: No crackles or wheezes are heard. Abdomen: Soft, nontender, nondistended with bowel sounds. No peritoneal signs. No palpable organomegaly or masses. Extremities: Normal skin color and turgor. No cyanosis, rash, ulceration, clubbing, or edema. Radial and pedal pulses are 2/4 bilaterally. Neurological: No focal deficits. Strength and sensation are grossly intact. - Labs CBC & Chem 7: 03/04/18 09:04 03/04/18 09:04 Labs: Abnormal Lab Results - Last 24 Hours (Table) 03/03/18 03/03/18 03/04/18 Range/Units 12:09 20:54 07:00 Plt Count (150-450) k/uL Glucose (74-99) mg/dL POC Glucose (mg/dL) 128 H 201 H 126 H (75-99) mg/dL Total Bilirubin (0.2-1.3) mg/dL AST (17-59) U/L ALT (21-72) U/L 03/04/18 03/04/18 Range/Units 09:04 09:04 Plt Count 128 L (150-450) k/uL Glucose 241 H (74-99) mg/dL POC Glucose (mg/dL) (75-99) mg/dL Total Bilirubin 1.8 H (0.2-1.3) mg/dL AST 62 H (17-59) U/L ALT 76 H (21-72) U/L Assessment and Plan (1) Elevated liver enzymes Narrative/Plan: 83-year-old male admitted with confusion fall dehydration found in the bathroom covered in feces for undocumented period of time with elevated liver enzymes with slow clinical improvement. Etiology of elevated liver enzymes could be underlying hepatic steatosis fatty liver disease steatohepatitis, underlying alcohol component cannot be excluded, other differentials to consider is mild shock liver patient was found status post fall and bathroom floor for period of time hypotensive blood changes cannot be entirely excluded. Current Visit: Yes Status: Acute Code(s): R74.8 - ABNORMAL LEVELS OF OTHER SERUM ENZYMES SNOMED Code(s): 854665812 Plan: 1. DC per medicine and consultants. Full serologic workup for chronic liver disease has been requested. Return to GI office in 2-3 weeks for reevaluation; LFTs can be monitored on an outpatient basis at this time. Assessment and plan of care discussed with Dr. Ward
[2018-03-04 12:10] LABS: Glucose,Whole Blood 238 mg/dL (75-99)
[2018-03-04] MEDS: SODIUM CHLORIDE 0.9% 1,000 ML IV SCH (12:35)
[2018-03-04 16:15] LABS: Iron Saturation 14.29 (15.00-50.00); Protein, Total 7.1 g/dL (6.2-8.2)
[2018-03-04 17:16] LABS: Alpha Fetoprotein, Tumor Mkr 5.3 ng/mL (0.0-7.9)
[2018-03-05 12:34] LABS: Ceruloplasmin 24.4 mg/dL (20.0-60.0)
[2018-03-05 14:05] LABS: Albumin 3.89 g/dL (3.80-4.90); Gamma Globulin 1.29 g/dL (0.70-1.50)
== END 2018-03-04 13:44 | disposition home or self-care (01) ==
LOC: EC 08:52 → 4MS4W 13:35
PROVIDERS: ADMIT Family Medicine; ATTEND Family Medicine
DX: R41.82 Altered mental status, unspecified (principal); S72.141D Displaced intertrochanteric fracture of right femur, subsequent encounter for closed fracture with routine healing; K72.90 Hepatic failure, unspecified without coma; E11.9 Type 2 diabetes mellitus without complications; M54.2 Cervicalgia; M19.90 Unspecified osteoarthritis, unspecified site; I67.82 Cerebral ischemia; E86.0 Dehydration; R32 Unspecified urinary incontinence; R33.8 Other retention of urine; D72.829 Elevated white blood cell count, unspecified; D69.6 Thrombocytopenia, unspecified; R29.6 Repeated falls; W18.30XA Fall on same level, unspecified, initial encounter; Y92.121 Bathroom in nursing home as the place of occurrence of the external cause; Z79.82 Long term (current) use of aspirin; Z79.84 Long term (current) use of oral hypoglycemic drugs; Z79.891 Long term (current) use of opiate analgesic; Z79.899 Other long term (current) drug therapy; Z88.0 Allergy status to penicillin; Z90.49 Acquired absence of other specified parts of digestive tract; Z95.1 Presence of aortocoronary bypass graft; Z87.891 Personal history of nicotine dependence; Z82.5 Family history of asthma and other chronic lower respiratory diseases
CPT/HCPCS: 99285 ×2; 36415; 95816; 93005; 97530; 97162; 97535; 97166; 80053 ×3; 80048; 80074; 82607; 82728; 82140; 82550; 82553; 83540; 83550; 84443; 84484; 85025 ×4; 85610; 85730; 81001; 83516; 82103; 82105; 84165; 82390; 83036; 72170; 71045; 76700; 76857; 76705; 72125; 70450 ×2; G0378 ×5